=== PATIENT | male | born 1965 | race Caucasian/White ===

== ENCOUNTER 2019-08-12 17:45 | Emergency (ER) | payer BC ==
[~2019-08-12] VITALS: Ht 175.3 cm; Wt 102.1 kg
[2019-08-12] MEDS ORDERED: NORCO 5-325 TA1 EAC1 PO (18:45)
[2019-08-12 18:59] VITALS: BP 123/83
== END 2019-08-12 18:34 | disposition home or self-care (01) ==
LOC: ER 17:45
DX: S86.012A Strain of left Achilles tendon, initial encounter (principal); I10 Essential (primary) hypertension; W18.09XA Striking against other object with subsequent fall, initial encounter; Y93.89 Activity, other specified; Y92.008 Other place in unspecified non-institutional (private) residence as the place of occurrence of the external cause; Y99.8 Other external cause status